=== PATIENT | female | born 1985 | race Caucasian/White ===

== ENCOUNTER 2019-07-19 15:05 | Emergency (ER) | payer SELFPAY ==
[~2019-07-19] VITALS: Ht 157.5 cm; Wt 65.8 kg
[2019-07-19 15:08] VITALS: BP 116/69
[2019-07-19] MEDS ORDERED: ceFAZolin 1,000 MG VIAL ONE ×2 (15:22→15:23)
[2019-07-19] MEDS: NACL 0.9% 1,000 ML IV ONE (15:51)
[2019-07-19] MEDS: KETOROLAC 30 MG/ML VIAL IVP ONE (15:52)
[2019-07-19 18:27] VITALS: BP 120/70
== END 2019-07-19 18:27 | disposition home or self-care (01) ==
LOC: MED 15:05
DX: N61.0 Mastitis without abscess (principal)
CPT/HCPCS: 36415; 87040; 96365; 96375; 99284; J0690; J1885; J7030